=== PATIENT | female | born 1955 | race Caucasian/White ===

== ENCOUNTER → 2017-11-11 | Outpatient (CLI) | payer BC ==
[~2017-11-11] VITALS: Ht 162.6 cm; Wt 86.4 kg
[~2017-11-11] MED LIST: MOBIC7.5 MG PO
[2017-11-11 18:55] VITALS: BP 143/79
== END | disposition home or self-care (01) ==
LOC: IVINF 18:00
DX: M85.80 Other specified disorders of bone density and structure, unspecified site (principal)
CPT/HCPCS: 96365; J3489